=== PATIENT | female | born 1995 | race Caucasian/White ===

== ENCOUNTER 2019-01-19 21:58 | Emergency (ER) | payer MEDICAID ==
[~2019-01-19] VITALS: Ht 165.1 cm; Wt 86.2 kg
[2019-01-19 22:16] VITALS: BP_SYST 128
[2019-01-20] MEDS ORDERED: CIPROFLOXACIN HCL 500 MG TABLET PO ONE (02:15)
[2019-01-20 02:34] VITALS: BP_SYST 122
== END 2019-01-20 02:34 | disposition home or self-care (01) ==
LOC: SED 21:58
DX: L08.89 Other specified local infections of the skin and subcutaneous tissue (principal); M79.674 Pain in right toe(s)
CPT/HCPCS: 99283